=== PATIENT | male | born 1965 | race Caucasian/White ===

== ENCOUNTER 2016-05-13 10:57 | Inpatient (IN) | payer OTHER ==
[2016-05-13] MEDS ORDERED: Acetaminophen TAB* 325 MG PO PRN (11:05)
[2016-05-13] MEDS ORDERED: Ondansetron INJ* 2 MG/ML VIAL IV PRN (11:05)
[2016-05-13] MEDS ORDERED: Loperamide CAP* 2 MG PO PRN (11:05)
[2016-05-13] MEDS ORDERED: Temazepam CAP* 15 MG PO PRN (11:10)
--- NOTE | 2016-05-13 13:44 | RAD ---
INDICATION: Cough, fever. Lethargic. Prostate carcinoma. COMPARISON: March 26, 2016 CT. TECHNIQUE: Dual energy PA and routine lateral views of the chest were obtained. REPORT: Clear lungs and pleural spaces. The heart, pulmonary vasculature, and mediastinal contours are unremarkable. Small LEFT epicardial fat pad noted based on correlation with CT. No suspicious osseous lesions evident. IMPRESSION: No evidence for pneumonia or thoracic neoplastic process. Negative exam.
[2016-05-13] MEDS: Enoxaparin(*) 40 MG/0.4 ML SYR SUBCUT SCH (15:43)
[2016-05-13] MEDS: NS 0.9% 1000 ML* 1,000 ML IV SCH (15:43)
[2016-05-13] MEDS: predniSONE TAB* 5 MG PO SCH (15:46)
[2016-05-13] MEDS: Cefepime(*) 2 GM in NS 0.9% 50 ML* 50 ML IVPB SCH (19:43)
[2016-05-14] MEDS: guaiFENesin LIQ* 100 MG/5 ML UDC PO PRN ×3 (00:06→21:46)
[2016-05-14] MEDS: NS 0.9% 1000 ML* 1,000 ML IV SCH ×2 (02:15→14:29)
[2016-05-14] MEDS: Cefepime(*) 2 GM in NS 0.9% 50 ML* 50 ML IVPB SCH ×3 (05:30→20:13)
[2016-05-14] MEDS: predniSONE TAB* 5 MG PO SCH ×2 (08:04→17:24)
--- NOTE | 2016-05-14 09:12 | PN ---
Progress Note - Progress Note SOAP: Subjective: [] Better, cough has decreased and feels more energy. Has no fevers this am. Breathing fine, no urinary symptoms. Some constipation. No abdominal pain. Acetaminophen (Tylenol Tab*) 650 mg PO Q4H PRN PRN Reason: FEVER Last Admin: 05/13/16 13:29 Dose: 650 mg Enoxaparin Sodium (Lovenox(*)) 40 mg SUBCUT Q24H [facility] Last Admin: 05/13/16 15:43 Dose: 40 mg Guaifenesin (Robitussin*) 15 ml PO Q6H PRN PRN Reason: COUGH Last Admin: 05/14/16 08:08 Dose: 15 ml Cefepime HCl 2 gm/ Sodium (Chloride) 50 mls @ 100 mls/hr IVPB Q8H [facility] Last Admin: 05/14/16 05:30 Dose: 100 mls/hr Sodium Chloride (Ns 0.9% 1000 Ml*) 1,000 mls @ 100 mls/hr IV PER RATE [facility] Last Admin: 05/14/16 02:15 Dose: 100 mls/hr Loperamide HCl (Imodium Cap*) 2 mg PO .SEE DIRECTIONS PRN PRN Reason: DIARRHEA Ondansetron HCl (Zofran Inj*) 4 mg IV Q6H PRN PRN Reason: NAUSEA Prednisone (Deltasone Tab*) 5 mg PO BID WITH MEALS [facility] Last Admin: 05/14/16 08:04 Dose: 5 mg Temazepam (Restoril Cap*) 15 mg PO BEDTIME PRN PRN Reason: INSOMNIA Objective: [] Vital Signs Temp Pulse Resp BP Pulse Ox 98.3 F 68 18 121/62 96 05/14/16 08:07 05/14/16 08:07 05/14/16 08:07 05/14/16 08:07 05/14/16 08:07 HEENT: mucosa moist, no lesions. CTA RRR S1S2 +BS, NT/ND Skin w/o rashes Assessment: []51 year old with prostate cancer, Taxotere and NF. No source. Expect WBC to recover over next 24 hrs and likely d/c tomorrow. He is low risk NF. Sepsis on admission, now improved. Plan: []1. Will follow as in patient today and likely discharge tomorrow. 2. No change in supportive medication. 3. Check UA
[2016-05-14] MEDS ORDERED: Acetaminophen TAB* 325 MG PO PRN (09:13)
[2016-05-14 09:40] LABS: Hematocrit 34 % (42-52); Mean Corpuscular HGB Conc 32 g/dl (31-36); Mean Corpuscular Hemoglobin 28 pg (27-31); Mean Corpuscular Volume 87 fL (80-94); Mean Platelet Volume 7 um3 (7.4-10.4); Red Blood Count 3.91 10^6/ul (4.0-5.4); Red Cell Distribution Width 16 % (10.5-15); White Blood Count 1.5 10^3/ul (3.5-10.8)
[2016-05-14 09:49] LABS: Add Diff/Slide Review? Slide Review Added; Comments Flag Yes
[2016-05-14 09:56] LABS: Albumin 3.4 g/dL (3.2-5.2); BUN/Creatinine Ratio 11.1 (8-20); Calcium 8.5 mg/dL (8.6-10.3); EGFR African American 114.9 (>60); EGFR Non-African American 89.3 (>60); Globulin 2.8 g/dL (2-4); Potassium 3.8 mmol/L (3.5-5.0); Total Bilirubin 0.4 mg/dL (0.2-1.0); Total Protein 6.2 g/dL (6.4-8.9)
[2016-05-14] MEDS: Enoxaparin(*) 40 MG/0.4 ML SYR SUBCUT SCH (12:04)
[2016-05-15] MEDS: NS 0.9% 1000 ML* 1,000 ML IV SCH (02:24)
[2016-05-15] MEDS: Cefepime(*) 2 GM in NS 0.9% 50 ML* 50 ML IVPB SCH (04:01)
[2016-05-15 06:26] LABS: Hematocrit 33 % (42-52); Hemoglobin 10.7 g/dl (14.0-18.0); Mean Corpuscular HGB Conc 32 g/dl (31-36); Mean Corpuscular Hemoglobin 28 pg (27-31); Mean Corpuscular Volume 87 fL (80-94); Mean Platelet Volume 7 um3 (7.4-10.4); Red Blood Count 3.81 10^6/ul (4.0-5.4); Red Cell Distribution Width 17 % (10.5-15)
[2016-05-15 06:31] LABS: Add Diff/Slide Review? Slide Review Added; Comments Flag Yes; White Blood Count 2.7 10^3/ul (3.5-10.8)
[2016-05-15 07:30] VITALS: BP 107/61
--- NOTE | 2016-05-15 09:17 | PN ---
Progress Note - Progress Note SOAP: DISCHARGE NOTE Subjective: []Doing well overall. No complaints today and fevers are gone. Energy goog, no cough and no SOB. Would like to go home. Acetaminophen (Tylenol Tab*) 650 mg PO Q4H PRN PRN Reason: FEVER Last Admin: 05/13/16 13:29 Dose: 650 mg Acetaminophen (Tylenol Tab*) 650 mg PO Q4H PRN PRN Reason: PAIN Enoxaparin Sodium (Lovenox(*)) 40 mg SUBCUT Q24H [facility] Last Admin: 05/14/16 12:04 Dose: 40 mg Guaifenesin (Robitussin*) 15 ml PO Q6H PRN PRN Reason: COUGH Last Admin: 05/14/16 21:46 Dose: 15 ml Cefepime HCl 2 gm/ Sodium (Chloride) 50 mls @ 100 mls/hr IVPB Q8H [facility] Last Admin: 05/15/16 04:01 Dose: 100 mls/hr Sodium Chloride (Ns 0.9% 1000 Ml*) 1,000 mls @ 100 mls/hr IV PER RATE [facility] Last Admin: 05/15/16 02:24 Dose: 100 mls/hr Loperamide HCl (Imodium Cap*) 2 mg PO .SEE DIRECTIONS PRN PRN Reason: DIARRHEA Ondansetron HCl (Zofran Inj*) 4 mg IV Q6H PRN PRN Reason: NAUSEA Prednisone (Deltasone Tab*) 5 mg PO BID WITH MEALS [facility] Last Admin: 05/14/16 17:24 Dose: 5 mg Temazepam (Restoril Cap*) 15 mg PO BEDTIME PRN PRN Reason: INSOMNIA Objective: [] Vital Signs Temp Pulse Resp BP Pulse Ox 97.9 F 68 18 107/61 98 05/15/16 07:23 05/15/16 07:23 05/15/16 07:23 05/15/16 07:23 05/15/16 07:23 HEENT - Mucosa moist, no lesions, no thrush CTA RRR S1S2 ABD - +BS, NT/ND EXT w/o C/C/E Laboratory Results - last 24 hr 05/14/16 05/14/16 05/15/16 09:16 09:16 06:00 WBC 1.5 L 2.7 L RBC 3.91 L 3.81 L Hgb 11.0 L 10.7 L Hct 34 L 33 L MCV 87 87 MCH 28 28 MCHC 32 32 RDW 16 H 17 H Plt Count 209 227 MPV 7 L 7 L Neut % (Auto) 36.6 L 50.8 Lymph % (Auto) 27.9 17.9 L [place] % (Auto) 33.8 H 29.9 H Eos % (Auto) 0.5 0.6 Baso % (Auto) 1.2 0.8 Absolute Neuts (auto) 0.5 L 1.4 L Absolute Lymphs (auto) 0.4 L 0.5 L Absolute Monos (auto) 0.5 0.8 Absolute Eos (auto) 0 0 Absolute Basos (auto) 0 0 Absolute Nucleated RBC 0.01 0.02 Nucleated RBC % 0.7 0.8 Sodium 137 Potassium 3.8 Chloride 106 Carbon Dioxide 25 Anion Gap 6 BUN 10 Creatinine 0.90 Est GFR ( Amer) 114.9 Est GFR (Non-Af Amer) 89.3 BUN/Creatinine Ratio 11.1 Glucose 138 H Calcium 8.5 L Total Bilirubin 0.40 AST 17 ALT 13 Alkaline Phosphatase 32 L Total Protein 6.2 L Albumin 3.4 Globulin 2.8 Albumin/Globulin Ratio 1.2 Assessment: []Neutropenic fever with sepsis, now improved and ANC > 1000 Plan: []1. DC home, no antibiotics 2. Keep follow up in office, will likely stay on schedule for next treatment 3. Call with any difficulty, fevers.
[2016-05-15] MEDS: predniSONE TAB* 5 MG PO SCH (09:30)
== END 2016-05-15 10:30 | disposition home or self-care (01) | DRG 872 ==
LOC: MED 12:38
PROVIDERS: ADMIT Internal Medicine Hematology & Oncology; ATTEND Internal Medicine Hematology & Oncology
DX: A41.9 Sepsis, unspecified organism (principal); D70.9 Neutropenia, unspecified; C61 Malignant neoplasm of prostate; C79.51 Secondary malignant neoplasm of bone; Z87.442 Personal history of urinary calculi; R50.81 Fever presenting with conditions classified elsewhere
CPT/HCPCS: 36415; 71020; 80053; 83605; 85025; 87040; 87086; 87502; 99223; 99232; 99238; A9270-GY; J0692; J0713; J1650; J2405; J7512

== ENCOUNTER 2016-06-27 20:22 | Inpatient (IN) | payer OTHER ==
[2016-06-27] MEDS ORDERED: GuaiFENesin DM* 5 ML UDC PO ONE (21:05)
[2016-06-27] MEDS ORDERED: Levofloxacin 750 MG IVPREMIX(* 750 MG/150 ML BAG IVPB ONE (21:05)
--- NOTE | 2016-06-27 21:28 | RAD ---
Indication: Cough, fever, upper respiratory symptoms for one week. Prostate carcinoma. Comparison: May 13, 2016 Technique: Upright AP 2110 hours Report: Costochondral calcifications noted at the first ribs. Clear lungs and pleural spaces. The heart, pulmonary vasculature, and mediastinal contours are unremarkable. IMPRESSION: No evidence for pneumonia. No evidence for acute intrathoracic disease.
[2016-06-27 21:54] LABS: Hematocrit 34 % (42-52); Hemoglobin 11.1 g/dl (14.0-18.0); Mean Corpuscular HGB Conc 33 g/dl (31-36); Mean Corpuscular Hemoglobin 28 pg (27-31); Mean Corpuscular Volume 85 fL (80-94); Mean Platelet Volume 7 um3 (7.4-10.4); Red Blood Count 4.02 10^6/ul (4.0-5.4); Red Cell Distribution Width 17 % (10.5-15); White Blood Count 1.6 10^3/ul (3.5-10.8)
[2016-06-27 21:58] LABS: Add Diff/Slide Review? Slide Review Added; Comments Flag Yes
[2016-06-27 22:02] LABS: BUN/Creatinine Ratio 12.8 (8-20); C Reactive Protein 25.94 mg/L (< 5.00); Calcium 9.2 mg/dL (8.6-10.3); EGFR African American 92.1 (>60); EGFR Non-African American 71.6 (>60); Globulin 2.6 g/dL (2-4); Total Bilirubin 0.3 mg/dL (0.2-1.0); Total Protein 6.6 g/dL (6.4-8.9)
[2016-06-27] MEDS: NS 0.9% 1000 ML* 2,000 ML IV ONE ×2 (22:14→23:50)
[2016-06-27] MEDS ORDERED: Cefepime(*) 2 GM in NS 0.9% 50 ML* 50 ML IVPB ONE (22:25)
[2016-06-27 22:34] LABS: Urine Bilirubin Negative (Negative); Urine Glucose Negative (Negative); Urine Nitrite Negative (Negative)
[2016-06-27] MEDS ORDERED: Acetaminophen TAB* 325 MG PO PRN (23:15)
[2016-06-27] MEDS ORDERED: Ondansetron INJ* 2 MG/ML VIAL IV PRN (23:15)
[2016-06-28] MEDS ORDERED: Acetaminophen TAB* 325 MG ONE (00:01)
[2016-06-28] MEDS: Cefepime(*) 2 GM in NS 0.9% 50 ML* 50 ML IVPB SCH ×2 (00:15→11:49)
--- NOTE | 2016-06-28 01:11 | ED ---
IEde,Darian, scribed for Arun Banda MD on 06/27/16 at 2109 . Respiratory - HPI Summary HPI Summary: This 51 y/o male presents to ED for gradually worsening cough, post nasal drips , and sore throat since a week ago. Fever and cough are worse since yesterday, and pt was referred to ED today when PCP became concerned with temperature of 101.0 F at 1800 PM today. Pt last took Advil 2 hours ago. Temperature of 99.6 F is noted at triage. Negative abd pain or rash. NKDA. PMHx is significant for prostate CA and current chemotherapy. Positive history of neutropenia and hospital admisstion. Pt is currently on prednisone, Eligard, and dexamethasone. - History of Current Complaint Chief Complaint: EDUpperRespComplaint Stated Complaint: COUGH/FEVER Time Seen by Provider: 06/27/16 20:54 Hx Obtained From: Patient, Medical Records Onset/Duration: Gradual Onset Timing: Constant Pain Intensity: 3 Character: Wheezing, Cough (Productive) Sputum Amount: Small Aggravating Factor(s): Nothing Alleviating Factor(s): Nothing Associated Signs and Symptoms: Fever, Wheezing, Sinus Discomfort - post nasal drips - Allergy/Home Medications Allergies/Adverse Reactions: Allergies Allergy/AdvReac Type Severity Reaction Status Date / Time No Known Allergies Allergy Verified 02/28/14 08:42 PMH/Surg Hx/FS Hx/Imm Hx Endocrine/Hematology History: Denies: Hx Diabetes, Hx Systemic Lupus Erythematosus Cardiovascular History: Denies: Hx Congestive Heart Failure, Hx Hypertension, Hx Pacemaker/ICD GI History: Reports: Other GI Disorders - reflux History: Denies: Hx Dialysis, Hx Renal Disease Comment Only: Other Problems/Disorders - slow stream Musculoskeletal History: Reports: Hx Rheumatoid Arthritis Sensory History: Reports: Hx Contacts or Glasses Denies: Hx Hearing Aid Opthamlomology History: Reports: Hx Contacts or Glasses Psychiatric History: Denies: Hx Panic Disorder - Cancer History Cancer Type, Location and Year: prostate Hx Chemotherapy: Yes - current Hx Radiation Therapy: No - Surgical History Surgery Procedure, Year, and Place: prostatectomy 06/11/13 Infectious Disease History: No Infectious Disease History: Denies: Traveled Outside the [place] in Last 30 Days - Family History Known Family History: Negative: Cardiac Disease - Social History Alcohol Use: Rare Hx Substance Use: No Substance Use Type: Reports: None Hx Tobacco Use: No Smoking Status (MU): Never Smoked Tobacco Review of Systems Positive: Fever - temperature of 101.0 F Positive: Sore Throat, Other - Positive sinus discomfort, post nasal drips. Positive: Cough - productive cough Negative: Abdominal Pain Negative: Rash Negative: Anxious, Depressed All Other Systems Reviewed And Are Negative: Yes Physical Exam Triage Information Reviewed: Yes Vital Signs On Initial Exam: Initial Vitals Temp Pulse Resp BP Pulse Ox 99.6 F 97 18 141/58 97 06/27/16 20:25 06/27/16 20:25 06/27/16 20:25 06/27/16 20:25 06/27/16 20:25 Vital Signs Reviewed: Yes Appearance: Positive: Ill-Appearing - mildly ill appearing Skin: Positive: Warm, Skin Color Reflects Adequate Perfusion, Dry Head/Face: Positive: Normal Head/Face Inspection Eyes: Positive: EOMI, SEBASTIAN Neck: Positive: Supple, Nontender Respiratory/Lung Sounds: Positive: Rhonchi - bilat rhonchi. Cleared by cough Cardiovascular: Positive: RRR, Pulses are Symmetrical in both Upper and Lower Extremities Abdomen Description: Positive: Nontender, No Organomegaly Neurological: Positive: Sensory/Motor Intact, Alert, Oriented to Person Place, Time Psychiatric: Positive: Affect/Mood Appropriate AVPU Assessment: Alert Diagnostics - Vital Signs Vital Signs Temp Pulse Resp BP Pulse Ox 06/27/16 20:25 99.6 F 97 18 141/58 97 - Laboratory Lab Results: Lab Results 06/27/16 06/27/16 06/27/16 Range/Units 21:30 21:30 21:30 WBC 1.6 L (3.5-10.8) 10^3/ul RBC 4.02 (4.0-5.4) 10^6/ul Hgb 11.1 L (14.0-18.0) g/dl Hct 34 L (42-52) % MCV 85 (80-94) fL MCH 28 (27-31) pg MCHC 33 (31-36) g/dl RDW 17 H (10.5-15) % Plt Count 206 (150-450) 10^3/ul MPV 7 L (7.4-10.4) um3 Neut % (Auto) 28.7 L (38-83) % Lymph % (Auto) 19.6 L (25-47) % [place] % (Auto) 49.7 H (1-9) % Eos % (Auto) 1.0 (0-6) % Baso % (Auto) 1.0 (0-2) % Absolute Neuts (auto) 0.4 L* (1.5-7.7) 10^3/ul Absolute Lymphs (auto) 0.3 L (1.0-4.8) 10^3/ul Absolute Monos (auto) 0.8 (0-0.8) 10^3/ul Absolute Eos (auto) 0 (0-0.6) 10^3/ul Absolute Basos (auto) 0 (0-0.2) 10^3/ul Absolute Nucleated RBC 0.02 10^3/ul Nucleated RBC % 1.6 Sodium 137 (133-145) mmol/L Potassium 4.0 (3.5-5.0) mmol/L Chloride 102 (101-111) mmol/L Carbon Dioxide 24 (22-32) mmol/L Anion Gap 11 (2-11) mmol/L BUN 14 (6-24) mg/dL Creatinine 1.09 (0.67-1.17) mg/dL Est GFR ( Amer) 92.1 (>60) Est GFR (Non-Af Amer) 71.6 (>60) BUN/Creatinine Ratio 12.8 (8-20) Glucose 116 H (70-100) mg/dL Lactic Acid 1.5 (0.5-2.0) mmol/L Calcium 9.2 (8.6-10.3) mg/dL Total Bilirubin 0.30 (0.2-1.0) mg/dL AST 16 (13-39) U/L ALT 20 (7-52) U/L Alkaline Phosphatase 36 (34-104) U/L C-Reactive Protein 25.94 H (< 5.00) mg/L Total Protein 6.6 (6.4-8.9) g/dL Albumin 4.0 (3.2-5.2) g/dL Globulin 2.6 (2-4) g/dL Albumin/Globulin Ratio 1.5 (1-3) Lipase 36 (11.0-82.0) U/L Urine Color Urine Appearance Urine pH (5-9) Ur Specific [place] (1.010-1.030) Urine Protein (Negative) Urine Ketones (Negative) Urine Blood (Negative) Urine Nitrate (Negative) Urine Bilirubin (Negative) Urine Urobilinogen (Negative) Ur Leukocyte Esterase (Negative) Urine Glucose (Negative) 06/27/16 Range/Units 22:15 WBC (3.5-10.8) 10^3/ul RBC (4.0-5.4) 10^6/ul Hgb (14.0-18.0) g/dl Hct (42-52) % MCV (80-94) fL MCH (27-31) pg MCHC (31-36) g/dl RDW (10.5-15) % Plt Count (150-450) 10^3/ul MPV (7.4-10.4) um3 Neut % (Auto) (38-83) % Lymph % (Auto) (25-47) % [place] % (Auto) (1-9) % Eos % (Auto) (0-6) % Baso % (Auto) (0-2) % Absolute Neuts (auto) (1.5-7.7) 10^3/ul Absolute Lymphs (auto) (1.0-4.8) 10^3/ul Absolute Monos (auto) (0-0.8) 10^3/ul Absolute Eos (auto) (0-0.6) 10^3/ul Absolute Basos (auto) (0-0.2) 10^3/ul Absolute Nucleated RBC 10^3/ul Nucleated RBC % Sodium (133-145) mmol/L Potassium (3.5-5.0) mmol/L Chloride (101-111) mmol/L Carbon Dioxide (22-32) mmol/L Anion Gap (2-11) mmol/L BUN (6-24) mg/dL Creatinine (0.67-1.17) mg/dL Est GFR ( Amer) (>60) Est GFR (Non-Af Amer) (>60) BUN/Creatinine Ratio (8-20) Glucose (70-100) mg/dL Lactic Acid (0.5-2.0) mmol/L Calcium (8.6-10.3) mg/dL Total Bilirubin (0.2-1.0) mg/dL AST (13-39) U/L ALT (7-52) U/L Alkaline Phosphatase (34-104) U/L C-Reactive Protein (< 5.00) mg/L Total Protein (6.4-8.9) g/dL Albumin (3.2-5.2) g/dL Globulin (2-4) g/dL Albumin/Globulin Ratio (1-3) Lipase (11.0-82.0) U/L Urine Color Straw Urine Appearance Clear Urine pH 6.0 (5-9) Ur Specific [place] 1.005 L (1.010-1.030) Urine Protein Negative (Negative) Urine Ketones Negative (Negative) Urine Blood Negative (Negative) Urine Nitrate Negative (Negative) Urine Bilirubin Negative (Negative) Urine Urobilinogen Negative (Negative) Ur Leukocyte Esterase Negative (Negative) Urine Glucose Negative (Negative) Result Diagrams: 06/27/16 21:30 06/27/16 21:30 Lab Statement: Any lab studies that have been ordered have been reviewed, and results considered in the medical decision making process. - Radiology CXR Xray Interpretation: No Acute Changes - Negative evidence for PNA Radiology Interpretation Completed By: Radiologist Disposition - Course Assessment/Plan: ADMIT HOSPITALIST STABLE. - Diagnoses Provider Diagnoses: Neutropenic fever - Physician Notifications Discussed Care Of Patient With: Dr. Duran (Hospitalist) at 2244 PM Time Discussed With Above Provider: 22:44 Instructed by Provider To: Admit As Inpatient Discharge - Discharge Plan Condition: Stable Disposition: ADMITTED TO [facility] The documentation as recorded by the Ede dunn Soohyun accurately reflects the service I personally performed and the decisions made by , Arun Banda MD.
[2016-06-28] MEDS: Heparin VIAL(*) 5000 UNITS/ML VIAL (FIVE THOUSAND) SUBCUT SCH ×3 (05:42→21:15)
[2016-06-28 07:03] LABS: Hematocrit 32 % (42-52); Hemoglobin 10.5 g/dl (14.0-18.0); Mean Corpuscular HGB Conc 33 g/dl (31-36); Mean Corpuscular Hemoglobin 28 pg (27-31); Mean Corpuscular Volume 87 fL (80-94); Mean Platelet Volume 7 um3 (7.4-10.4); Red Blood Count 3.71 10^6/ul (4.0-5.4); Red Cell Distribution Width 18 % (10.5-15); White Blood Count 3.3 10^3/ul (3.5-10.8)
[2016-06-28 07:09] LABS: Add Diff/Slide Review? Slide Review Added; Comments Flag Yes
[2016-06-28] MEDS: predniSONE TAB* 5 MG PO SCH ×2 (08:16→21:15)
--- NOTE | 2016-06-28 08:42 | HP ---
HISTORY AND PHYSICAL: DATE OF ADMISSION: 06/27/16 CHIEF COMPLAINT: Fever. HISTORY OF PRESENT ILLNESS: The patient is a 51-year-old gentleman who presented to the [facility] after finding out he had a fever of 101.7 at home today. He has a history of a metastatic prostate cancer and finished chemotherapy about one week ago last Tuesday. He was feeling a kind of cold and he took his temperature twice yesterday. He took it in the morning , and it was normal, but then later in the day about 4:30 it was 101.7. He only has a cough and runny nose, but no other symptoms. He has no pain or difficulty urinating. No abdominal pain. No nausea or vomiting. No chest pain or shortness of breath, body aches and pain. PAST MEDICAL HISTORY: He has a past medical history as noted for the metastatic prostate cancer and kidney stones. PAST SURGICAL HISTORY: Robotic prostatectomy in 2013. SOCIAL HISTORY: Patient does not smoke, use recreational drugs or alcohol. He is . His , Seng Chacko, is his healthcare proxy. FAMILY HISTORY: Reviewed and noncontributory. CURRENT MEDICATIONS: 1. Eligard 22.5 mg subcu every three months. 2. Decadron 4 mg daily. REVIEW OF SYSTEMS: A 14-point review of systems is completed with the patient. All pertinent positives and negatives are in the History of Present Illness, otherwise it is negative. PHYSICAL EXAMINATION GENERAL: A very pleasant gentleman lying in bed, in no acute distress. VITAL SIGNS: Temperature 100.8 degrees, heart rate 83 beats per minute, pulse ox 96%, blood pressure 109/62. HEENT: Normocephalic and atraumatic. Pupils are equal, round and reactive to light. Moist mucous membranes. NECK: Supple. No JVD, bruits, palpable thyroid or lymphadenopathy. CHEST: Clear to auscultation and percussion bilaterally. CARDIOVASCULAR: S1, S2 appreciated. ABDOMEN: Positive bowel sounds in all 4 quadrants. Soft, nontender, and nondistended. No hepatosplenomegaly. EXTREMITIES: No cyanosis, clubbing, or edema. NEUROLOGIC: Alert and oriented x3. Moves all extremities. SKIN: No rashes or abnormalities. LABORATORY DATA: White count 1.6, hemoglobin 11.1, hematocrit 34, platelets 206. Absolute neutrophils 0.4. Sodium 137, potassium 4.0, chloride 102, CO2 24 , BUN 14, creatinine 1.9, glucose 116. Urinalysis is unremarkable. Chest x-ray was interpreted by radiology as no evidence for pneumonia, no evidence for acute intrathoracic disease. ASSESSMENT AND PLAN: 1. Neutropenic fever. Absolute neutrophils of 0.64. We will start the patient on cefepime 2 g IV every 12 hours. Monitor overnight. No source yet. Oncology will see in the morning. If nausea is not improved, might benefit from I.D. consult. 2. Metastatic prostate cancer. Treatment as per Oncology. 3. FEN. Regular diet. 4. DVT prophylaxis. Heparin subcu. 5. The patient is a full code. TIME SPENT: Over 75 minutes were spent on this H and P, more than 40 minutes of which were spent in direct [id number] contact with the patient in evaluation, physical exam, counseling, and coordination of care. CC: Noel Rizvi MD; Rj Braswell MD * [id number]/[facility] #: [id number] MTDD
[2016-06-28] MEDS ORDERED: Dexamethasone TAB* 4 MG PO SCH (09:00)
[2016-06-29] MEDS: Cefepime(*) 2 GM in NS 0.9% 50 ML* 50 ML IVPB SCH ×2 (00:02→11:25)
[2016-06-29] MEDS: Heparin VIAL(*) 5000 UNITS/ML VIAL (FIVE THOUSAND) SUBCUT SCH (05:33)
[2016-06-29] MEDS: predniSONE TAB* 5 MG PO SCH (08:27)
[2016-06-29 10:47] LABS: Hematocrit 33 % (42-52); Hemoglobin 10.9 g/dl (14.0-18.0); Mean Corpuscular HGB Conc 33 g/dl (31-36); Mean Corpuscular Hemoglobin 28 pg (27-31); Mean Corpuscular Volume 85 fL (80-94); Mean Platelet Volume 7 um3 (7.4-10.4); Red Blood Count 3.91 10^6/ul (4.0-5.4); Red Cell Distribution Width 18 % (10.5-15); White Blood Count 3.5 10^3/ul (3.5-10.8)
[2016-06-29 10:49] LABS: Add Diff/Slide Review? Slide Review Added; Comments Flag Yes
[2016-06-29 11:41] VITALS: BP 108/60
== END 2016-06-29 12:17 | disposition home or self-care (01) | DRG 810 ==
LOC: ED 20:22 → SSU 23:15
PROVIDERS: ADMIT Internal Medicine; ATTEND Internal Medicine Hematology & Oncology
DX: D70.9 Neutropenia, unspecified (principal); C61 Malignant neoplasm of prostate; R50.81 Fever presenting with conditions classified elsewhere; M06.9 Rheumatoid arthritis, unspecified; Z92.21 Personal history of antineoplastic chemotherapy; Z90.5 Acquired absence of kidney
CPT/HCPCS: 36415; 71010; 80053; 81003; 83605; 83690; 85025; 86140; 87040; 99232; 99238; A9270-GY; J0692; J1644; J7512

== ENCOUNTER 2016-09-24 19:51 | Emergency (ER) | payer OTHER ==
--- NOTE | 2016-09-24 20:27 | ED ---
Katherine Jackson SooYoung, scribed for Lakhwinder Harrington MD on 09/24/16 at 2018 . HPI Febrile Illness - HPI Summary HPI Summary: A 51 y/o M presents to ED with ongoing fever initial onset last night with maxT of 101.5 F. Denies cough, vomiting, dysuria, states feeling OK other than the fever. Pert PMHx: prostate CA. Pt sees Dr. Braswell, last treatment was 16 days ago , and is scheduled to see him next week. Mildly alleviating factors: Ibuprofen. Pt has been very active this week, and thinks he might have been dehydrated. He notes prev dx: neutropenic fever earlier this year. - History of Current Complaint Chief Complaint: EDFever Time Seen by Provider: 09/24/16 20:09 Hx Obtained From: Patient Onset/Duration: Started Hours Ago - last night, Still Present Timing: Constant Initial Severity: Mild Current Severity: Mild Pain Intensity: 0 Pain Scale Used: 0-10 Numeric Alleviating Factors: OTC Medicine - mildly Associated Signs and Symptoms: Negative - Additional Pertinent History Primary Care Physician: CAROLYNE - Allergy/Home Medications Allergies/Adverse Reactions: Allergies Allergy/AdvReac Type Severity Reaction Status Date / Time No Known Allergies Allergy Verified 09/24/16 20:10 PMH/Surg Hx/FS Hx/Imm Hx Previously Healthy: No Endocrine/Hematology History: Denies: Hx Diabetes, Hx Systemic Lupus Erythematosus Cardiovascular History: Denies: Hx Congestive Heart Failure, Hx Hypertension, Hx Pacemaker/ICD GI History: Reports: Other GI Disorders - reflux History: Denies: Hx Dialysis, Hx Renal Disease Comment Only: Other Problems/Disorders - slow stream Musculoskeletal History: Reports: Hx Rheumatoid Arthritis Sensory History: Reports: Hx Contacts or Glasses Denies: Hx Hearing Aid Opthamlomology History: Reports: Hx Contacts or Glasses Psychiatric History: Denies: Hx Panic Disorder - Cancer History Cancer Type, Location and Year: prostate Hx Chemotherapy: Yes - current Hx Radiation Therapy: No - Surgical History Surgery Procedure, Year, and Place: prostatectomy 06/11/13 Infectious Disease History: Denies: Traveled Outside the [place] in Last 30 Days - Family History Known Family History: Negative: Cardiac Disease - Social History Occupation: Employed Full-time Lives: With Family Alcohol Use: Rare Hx Substance Use: No Substance Use Type: Reports: None Hx Tobacco Use: No Smoking Status (MU): Never Smoked Tobacco Review of Systems Positive: Fever Negative: Cough Negative: Vomiting Negative: dysuria All Other Systems Reviewed And Are Negative: Yes Physical Exam Triage Information Reviewed: Yes Vital Signs On Initial Exam: Initial Vitals Temp Pulse Resp BP Pulse Ox 99.7 F 92 20 123/64 98 09/24/16 19:53 09/24/16 19:53 09/24/16 19:53 09/24/16 19:53 09/24/16 19:53 Vital Signs Reviewed: Yes Appearance: Positive: Well-Appearing, No Pain Distress Skin: Positive: Warm Head/Face: Positive: Normal Head/Face Inspection Eyes: Positive: SEBASTIAN ENT: Positive: Pharynx normal, TMs normal Neck: Positive: Supple, Nontender Respiratory/Lung Sounds: Positive: Breath Sounds Present Cardiovascular: Positive: RRR Abdomen Description: Positive: Nontender, Soft Bowel Sounds: Positive: Present Musculoskeletal: Positive: Strength/ROM Intact Neurological: Positive: Sensory/Motor Intact, Alert, Oriented to Person Place, Time, Normal Gait Psychiatric: Positive: Affect/Mood Appropriate Diagnostics - Vital Signs Vital Signs Temp Pulse Resp BP Pulse Ox 09/24/16 19:53 99.7 F 92 20 123/64 98 - Laboratory Result Diagrams: 09/24/16 20:25 09/24/16 20:25 Lab Statement: Any lab studies that have been ordered have been reviewed, and results considered in the medical decision making process. - Radiology CXR Xray Interpretation: Positive (See Comments) - IMPRESSION: PATCHY RIGHT BASILAR ATELECTASIS VERSUS EARLY CONSOLIDATION. RECOMMEND FOLLOW-UP UNTIL RESOLUTION TO EXCLUDE UNDERLYING PULMONARY PARENCHYMAL PATHOLOGY. Radiology Interpretation Completed By: Radiologist - EKG 1 EKG Rhythm: Sinus Rhythm Re-Evaluation - Re-Evaluation First Eval Change: Improved - results d/w pt, labs not neutropenic, feels better, will d/ c f/u pcp Course/Dx - Course Course Of Treatment: Pt is 51 y/o M with prostate CA presents with ongoing fever onset last night with maxT of 101.5 F. Denies cough, vomiting, dysuria, states feeling OK other than the fever. Pt sees Dr. Braswell. He notes prev dx: neutropenic fever this year. Pt given fluids in ED. CXR shows PATCHY RIGHT BASILAR ATELECTASIS VERSUS EARLY CONSOLIDATION. RECOMMEND FOLLOW-UP UNTIL RESOLUTION TO EXCLUDE UNDERLYING PULMONARY PARENCHYMAL PATHOLOGY. EKG was NSR. Will D/C home without meds. - Diagnoses Provider Diagnoses: Febrile illness Discharge - Discharge Plan Condition: Stable Disposition: HOME Patient Education Materials: Fever in Adults (ED) Referrals: Noel Rizvi MD [Primary Care Provider] - Additional Instructions: Please return to the ED if you experience new or worsening symptoms. The documentation as recorded by the Katherine dunn SooYoung accurately reflects the service I personally performed and the decisions made by , Lakhwinder Harrington MD.
[2016-09-24] MEDS ORDERED: NS 0.9% 1000 ML* 1,000 ML IV ONE (20:28)
[2016-09-24 20:37] LABS: Hematocrit 34 % (42-52); Hemoglobin 11.2 g/dl (14.0-18.0); Mean Corpuscular HGB Conc 33 g/dl (31-36); Mean Corpuscular Hemoglobin 29 pg (27-31); Mean Corpuscular Volume 86 fL (80-94); Mean Platelet Volume 7 um3 (7.4-10.4); Red Blood Count 3.93 10^6/ul (4.0-5.4); Red Cell Distribution Width 18 % (10.5-15); White Blood Count 3.8 10^3/ul (3.5-10.8)
[2016-09-24 20:39] LABS: Add Diff/Slide Review? Slide Review Added; Comments Flag Yes
[2016-09-24 20:57] LABS: Albumin 3.9 g/dL (3.2-5.2); BUN/Creatinine Ratio 19.6 (8-20); Calcium 9.1 mg/dL (8.6-10.3); EGFR Non-African American 87.1 (>60); Globulin 2.2 g/dL (2-4); Magnesium 1.8 mg/dL (1.9-2.7); Potassium 4.2 mmol/L (3.5-5.0); Total Bilirubin 0.4 mg/dL (0.2-1.0); Total Protein 6.1 g/dL (6.4-8.9)
--- NOTE | 2016-09-24 21:03 | RAD ---
HISTORY: Fever COMPARISONS: June 27, 2016 VIEWS: 2: Frontal dual-energy and lateral views of the chest. FINDINGS: CARDIOMEDIASTINAL SILHOUETTE: The cardiomediastinal silhouette is normal. SHAILESH: The shailesh are normal. PLEURA: The costophrenic angles are sharp. No pleural abnormalities are noted. LUNG PARENCHYMA: There is patchy alveolar opacification of the right lung base ABDOMEN: The upper abdomen is clear. There is no subphrenic gas. BONES AND SOFT TISSUES: No bone or soft tissue abnormalities are noted. OTHER: None. IMPRESSION: PATCHY RIGHT BASILAR ATELECTASIS VERSUS EARLY CONSOLIDATION. RECOMMEND FOLLOW-UP UNTIL RESOLUTION TO EXCLUDE UNDERLYING PULMONARY PARENCHYMAL PATHOLOGY
[2016-09-24 21:53] LABS: Immature Granulocytes 14 % (0-9); Myelocytes % 1 % (0-1); Neutrophil % 65 % (38-83)
[2016-09-24 21:54] LABS: RBC Morphology Normal (Normal)
[2016-09-24 22:28] LABS: Urine Bilirubin Negative (Negative); Urine Glucose Negative (Negative); Urine Nitrite Negative (Negative)
[2016-09-24 22:45] VITALS: BP 105/56
== END 2016-09-24 22:47 | disposition home or self-care (01) ==
LOC: ED 19:51
DX: R50.9 Fever, unspecified (principal)
CPT/HCPCS: 36415; 71020; 80053; 81003; 83605; 83735; 85025; 85610; 87040; 93005; 99282

== ENCOUNTER 2019-06-20 13:07 | Observation (INO) | payer BC ==
[2019-06-20] MEDS ORDERED: Ondansetron INJ* 2 MG/ML VIAL IV ONE (13:17)
[2019-06-20] MEDS ORDERED: Morphine 4 MG/ML VIAL (1 ml) 4 MG/ML VIAL IV ONE (13:17)
[2019-06-20] MEDS ORDERED: NS 0.9% 1000 ML** 1,000 ML IV ONE (13:17)
--- NOTE | 2019-06-20 13:20 | ED ---
Back Pain - HPI Summary HPI Summary: Pt. is a 54 y.o male who presents to the ER for right flank pain. Pt. states pt. has been ongoing for weeks. Pt. is currently being with chemo for prostate cancer. Pt. follows with Dr. Braswell and Dr. Steinberg. Pt. was seen at Dr. Steinberg's office today for increased right flank pain. Dr. Steinberg noted hydronephrosis on ultrasound and no stone. He is concerned there may be a lymph node that is obstructing kidney. Pt. was sent to ED for pain control, admission to oncology and possible ureteral stent. Pt. denies fever, vomiting, chest pain, SOB. Sxs are moderate in severity. No current modifying factors. - History of Current Complaint Chief Complaint: EDFlankPain Stated Complaint: RT SIDE FLANK PAIN PER PT Time Seen by Provider: 06/20/19 13:13 Hx Obtained From: Patient Pain Intensity: 9 - Allergies/Home Medications Allergies/Adverse Reactions: Allergies Allergy/AdvReac Type Severity Reaction Status Date / Time No Known Allergies Allergy Verified 04/13/19 07:47 Home Medications: Home Medications Leuprolide 22.5 (3 MONTH) KIT* [Eligard KIT*] 22.5 mg SUBCUT .[id number] 05/13/16 [History Confirmed 06/20/19] predniSONE 5 mg TAB [Deltasone 5 mg TAB] 5 mg PO BID 05/13/16 [History Confirmed 06/20/19] Calcium Carbonate [Antacid] 420 mg PO DAILY PRN 06/20/19 [History Confirmed 02/28] Ibuprofen TAB* [Advil TAB*] 600 mg PO QID PRN 06/20/19 [History Confirmed ] Loperamide HCl [Imodium A-D] 2 mg PO DAILY PRN 06/20/19 [History Confirmed 06/19] Naproxen Sodium [Aleve] 220 mg PO BID PRN 06/20/19 [History Confirmed 06/20/19] PMH/Surg Hx/FS Hx/Imm Hx Previously Healthy: Yes Endocrine/Hematology History: Denies: Hx Diabetes, Hx Systemic Lupus Erythematosus Cardiovascular History: Denies: Hx Congestive Heart Failure, Hx Hypertension, Hx Pacemaker/ICD GI History: Reports: Other GI Disorders - reflux History: Denies: Hx Dialysis, Hx Renal Disease Comment Only: Other Problems/Disorders - slow stream Musculoskeletal History: Reports: Hx Rheumatoid Arthritis Sensory History: Reports: Hx Contacts or Glasses Denies: Hx Hearing Aid Opthamlomology History: Reports: Hx Contacts or Glasses Psychiatric History: Denies: Hx Panic Disorder - Cancer History Cancer Type, Location and Year: prostate. SINONASAL SQUAMOUS CELL Hx Chemotherapy: Yes - current Hx Radiation Therapy: No - Surgical History Surgery Procedure, Year, and Place: prostatectomy 06/11/13. surgery to face to remove squamous cell CA - Immunization History Date of Tetanus Vaccine: unk Date of Influenza Vaccine: none Infectious Disease History: No Infectious Disease History: Denies: Traveled Outside the [place] in Last 30 Days - Family History Known Family History: Negative: Cardiac Disease - Social History Alcohol Use: Rare Hx Substance Use: No Substance Use Type: Reports: None Hx Tobacco Use: No Smoking Status (MU): Never Smoked Tobacco Review of Systems Constitutional: Negative Negative: Fever Cardiovascular: Negative Negative: Chest Pain Respiratory: Negative Negative: Shortness Of Breath Positive: Abdominal Pain, Other - right flank pain Positive: Headache All Other Systems Reviewed And Are Negative: Yes Physical Exam Triage Information Reviewed: Yes Vital Signs On Initial Exam: Initial Vitals Temp Pulse Resp BP Pulse Ox 96.7 F 71 18 151/72 100 06/20/19 13:08 06/20/19 13:08 06/20/19 13:08 06/20/19 13:08 06/20/19 13:08 Vital Signs Reviewed: Yes Appearance: Positive: Pain Distress - Pt. sitting on bed, appears in pain but nontoxic. Family present. Skin: Positive: Warm, Dry Head/Face: Positive: Normal Head/Face Inspection Eyes: Positive: Normal, EOMI Neck: Positive: Supple Respiratory/Lung Sounds: Positive: Clear to Auscultation, Breath Sounds Present. Negative: Rales, Rhonchi, Wheezes Cardiovascular: Positive: Normal, RRR Abdomen Description: Positive: CVA Tenderness (R) Neurological: Positive: Normal, CN Intact II-III Psychiatric: Positive: Affect/Mood Appropriate Procedures - Sedation Patient Received Moderate/Deep Sedation with Procedure: No Diagnostics - Vital Signs Vital Signs Temp Pulse Resp BP Pulse Ox 06/20/19 13:08 96.7 F 71 18 151/72 100 - Laboratory Result Diagrams: 06/20/19 13:54 06/20/19 13:54 Lab Statement: Any lab studies that have been ordered have been reviewed, and results considered in the medical decision making process. Back Pain Course/Dx - Course Course Of Treatment: Pt. with severe right flank pain. Afebrile with stable VS. Pt. given IV pain medications. Labs show WBC of 24k. Chronicall low h and h and platelets. Normal renal function. CXR negative for acute findings. Case discussed with Dr. Steinberg who would like pt. admitted and he plans to place a stent tomorrow. NPO after midnight. Case discussed with Dr. Matt, onc, and she agrees to admission. pt. has good pain control with IV morphine. - Diagnoses Differential Diagnosis/HQI/PQRI: Positive: Neoplasm, Renal Colic Provider Diagnoses: Hydronephrosis, Flank pain Discharge ED - Sign-Out/Discharge Documenting (check all that apply): Patient Departure - Discharge Plan Condition: Stable Disposition: ADMITTED TO [facility] - Billing Disposition and Condition Condition: STABLE Disposition: Admitted to [facility] - Attestation Statements Provider Attestation: I was available for consult. This patient was seen by the EDILSON. The patient was not presented to, seen by, or examined by me. Melquiades Flores MD
[2019-06-20 14:12] LABS: Hematocrit 32 % (42-52); Hemoglobin 10.5 g/dL (14.0-18.0); Mean Corpuscular HGB Conc 33 g/dL (31-36); Mean Corpuscular Hemoglobin 31 pg (27-31); Mean Corpuscular Volume 95 fL (80-94); Mean Platelet Volume 7.8 fL (7.4-10.4); Platelet Count 111 10^3/uL (150-450); Red Blood Count 3.37 10^6 /uL (4.18-5.48); Red Cell Distribution Width 16 % (10-15)
[2019-06-20 14:26] LABS: Albumin 3.6 g/dL (3.2-5.2); Albumin/Globulin Ratio 1.8 (1-3); BUN/Creatinine Ratio 22.1 (8-20); Calcium 8.2 mg/dL (8.6-10.3); EGFR African American 100.3 (>60); EGFR Non-African American 82.9 (>60); Potassium 4.3 mmol/L (3.5-5.0); Total Bilirubin 0.3 mg/dL (0.2-1.0); Total Protein 5.6 g/dL (6.4-8.9)
[2019-06-20 14:48] LABS: ABS Basophils 0.1 10^3/ul (0-0.2); ABS Lymphocytes 0.8 10^3/ul (1.0-4.8); ABS Monocytes 1.1 10^3/ul (0-0.8); ABS Neutrophils 21.9 10^3/ul (1.5-7.7); Eosinophil % 0.1 %; Lymphocyte % 3.5 %; Nucleated Red Blood Cells % 0.2
[2019-06-20] MEDS ORDERED: HYDROmorphone INJ1* 1 MG/ML SYRINGE IV SLOW PU ONE (15:14)
[2019-06-20] MEDS ORDERED: NS 0.9% 1000 ML** 1,000 ML IV SCH (15:15)
[2019-06-20] MEDS ORDERED: Ondansetron ODT TAB* 4 MG SL PRN (15:22)
[2019-06-20] MEDS ORDERED: Morphine 4 MG/ML VIAL (1 ml) 4 MG/ML VIAL IV PRN (15:22)
[2019-06-20] MEDS ORDERED: Acetaminophen TAB* 325 MG PO PRN (15:22)
[2019-06-20] MEDS ORDERED: Loperamide CAP* 2 MG PO PRN (15:24)
[2019-06-20 15:30] LABS: Urine Appearance Clear; Urine Bilirubin Negative (Negative); Urine Blood 3+ (Negative); Urine Color Straw; Urine Glucose Negative (Negative); Urine Ketones Negative (Negative); Urine Nitrite Negative (Negative); Urine Protein Negative (Negative); Urine Specific Gravity 1.005 (1.010-1.030); Urine Urobilinogen Negative (Negative)
[2019-06-20 15:47] LABS: Urine Bacteria 1+ (Absent); Urine Red Blood Cell 1+(3-5/hpf) (Absent); Urine White Blood Cell 3+(>20/hpf) (Absent)
[2019-06-20] MEDS ORDERED: Buffered Lidocaine 1% SYRIN* 1 ML/SYRINGE INTRADERM ONE (17:30)
[2019-06-20] MEDS ORDERED: cefTRIAXone(*) 2 GM ADDV.VIAL IVPB ONE (17:32)
[2019-06-20] MEDS ORDERED: Iohexol 180 (CONTRAST) 10 ML SDV IV ONE ×2 (17:33→18:10)
[2019-06-20] MEDS ORDERED: Naloxone* 0.4 MG/ML 1 ML VIAL IV PRN (17:52)
[2019-06-20] MEDS ORDERED: HYDROmorphone INJ1* 1 MG/ML SYRINGE IV PRN (17:52)
[2019-06-20] MEDS ORDERED: Lactated Ringers 1000 ML Bag* 1,000 ML IV SCH (18:00)
[2019-06-20 20:28] VITALS: BP 150/68
--- NOTE | 2019-06-21 08:28 | OP ---
CC: Dr. Braswell * DATE OF OPERATION: 06/20/19 - ROOM #415 DATE OF : 67 SURGEON: Dr. Steinberg. ANESTHESIOLOGIST: Dr. Perez. ANESTHESIA: General. PRE-OP DIAGNOSES: 1. Advanced prostate cancer. 2. Right hydronephrosis. POST-OP DIAGNOSES: 1. Advanced prostate cancer. 2. Right hydronephrosis. OPERATIVE PROCEDURE: Cystoscopy, right retrograde pyelogram, right ureteroscopy , right ureteral balloon dilatation, and right stent insertion. COMPLICATIONS: None. STENT USED: 8.5-Lithuanian, 28 cm silicone stent, right ureter. POSTOPERATIVE CONDITION: Stable. OPERATIVE FINDINGS: 1. Stricture, penile urethra. 2. Extensive areas of telangiectasia throughout bladder (status post radiation) . 3. Severe right hydronephrosis with proximal and mid hydroureter (probably extrinsic compression of right distal to mid ureter secondary to neoplasm). INDICATIONS: Jesus Chacko Junior is a 54-year-old gentleman with unfortunately advanced prostate cancer, now causing right hydronephrosis and causing severe right flank pain. DESCRIPTION OF PROCEDURE: After induction of general anesthesia, the patient was placed in dorsal lithotomy position. Sequential compression devices were in place and functioning. Initial cystoscopy revealed a mild stricture in the penile urethra, which was dilated. The remainder of the urethra was unremarkable. The patient is status post radical prostatectomy. The bladder was examined. Extensive areas of telangiectasia were seen, which is expected with the history of radiation. The right orifice was identified. Right retrograde pyelogram revealed significant right hydronephrosis with a significantly dilated proximal and mid right ureter. It appears that the obstruction is probably related to adenopathy pressing on the mid to distal right ureter. A 6-Lithuanian semi-rigid ureteroscope was introduced and advanced under direct vision to rule out any intraureteral cause of the obstruction such as a calculus or a lesion and none was noted. The ureteroscope was advanced to the level of the mid ureter and then was carefully withdrawn under direct vision. Balloon dilatation of the mid and distal ureter was carried out under fluoroscopic monitoring and an 8.5 x 28 cm black silicone stent was introduced and positioned under fluoroscopy with good proximal and distal positioning obtained. The bladder was emptied. The patient tolerated the procedure satisfactorily and was transferred back to the recovery area in stable condition. [id number]/[facility] #: [id number] [facility]
--- NOTE | 2019-06-25 10:09 | DS ---
- Discharge Summary Admission Date: 06/20/19 Discharge Date: 06/20/19 Discharge Diagnosis: 1. Hydronephrosis: s/p stent placement 2. Prostate Cancer: resume therapy as outpatient Discharge Medications: Medication Instructions Recorded Confirmed Type Leuprolide 22.5 (3 MONTH) KIT* 22.5 mg SUBCUT .[id number] 05/13/16 06/20/19 History [Eligard KIT*] predniSONE 5 mg TAB [Deltasone 5 5 mg PO BID 05/13/16 06/20/19 History mg TAB] Calcium Carbonate [Antacid] 420 mg PO DAILY PRN 06/20/19 06/20/19 History Ibuprofen TAB* [Advil TAB*] 600 mg PO QID PRN 06/20/19 06/20/19 History Loperamide HCl [Imodium A-D] 2 mg PO DAILY PRN 06/20/19 06/20/19 History Naproxen Sodium [Aleve] 220 mg PO BID PRN 06/20/19 06/20/19 History Activity: as tolerated Diet: as tolerated Disposition: Home Condition: Good Hospital Course: Please see admission note for full H&P, however, briefly, Mr. Chacko is well known to our service due to his unfortunate diagnosis of metastatic prostate cancer. He most recently received Cabazitaxel, Cycle 7, on 06/04/19. He developed progressive flank pain and was seen by his urologist, Dr. Steinberg. An US in the office revealed new right sided hydronephrosis and he was referred to the ER. In the ER he received IV morphine with good effect. He was admitted OBV with plan for stent placement in the morning, however OR availability allowed for stent placement with Dr. Steinberg the evening of his admission, . Following surgery he remained stable and was discharged home in good condition. Follow-up: as scheduled with oncologist, Dr. Braswell
== END 2019-06-20 20:00 | disposition home or self-care (01) ==
LOC: ED 13:07 → MED 15:08
PROVIDERS: ADMIT Internal Medicine Hematology & Oncology; ATTEND Internal Medicine Hematology & Oncology
PROC: BT1DZZZ Fluoroscopy of Right Kidney, Ureter and Bladder (ICD-10-PCS; 2019-06-20)
PROC: 0WHR8YZ Insertion of Other Device into Genitourinary Tract, Via Natural or Artificial Opening Endoscopic (ICD-10-PCS; 2019-06-20)
PROC: 0T768DZ Dilation of Right Ureter with Intraluminal Device, Via Natural or Artificial Opening Endoscopic (ICD-10-PCS; principal; 2019-06-20 18:00)
DX: C61 Malignant neoplasm of prostate (principal); N35.819 Other urethral stricture, male, unspecified site; I78.1 Nevus, non-neoplastic; N13.30 Unspecified hydronephrosis; R10.9 Unspecified abdominal pain; Z79.899 Other long term (current) drug therapy
CPT/HCPCS: 36415; 71045; 76000; 80053; 81003; 81015; 85025; 87086; 96361; 96374; 96375; 99219; 99284; G0378; J0696; J2270; J2405